=== PATIENT | male | born 1975 | race Caucasian/White ===

== ENCOUNTER 2019-09-13 11:00 | Day surgery (SDC) | payer MEDICAID ==
[~2019-09-13] VITALS: Ht 180.3 cm; Wt 106.3 kg
[~2019-09-13 11:00] MED LIST: SODIUM CHLORIDE 0.9% 1,000 ML ONE
[2019-09-13] MEDS ORDERED: SODIUM CHLORIDE 0.9% 1,000 ML IV ONE (13:00)
[2019-09-13] MEDS ORDERED: LIDOCAINE 1% 10 ML VIAL ONE (21:49)
[2019-09-13] MEDS ORDERED: PROPOFOL 1% 20 ML VIAL IVP ONE (21:49)
== END 2019-09-13 18:05 | disposition home or self-care (01) ==
LOC: SURGERY 11:00
PROVIDERS: ATTEND Internal Medicine Gastroenterology
DX: R10.13 Epigastric pain (principal); K29.50 Unspecified chronic gastritis without bleeding; K25.9 Gastric ulcer, unspecified as acute or chronic, without hemorrhage or perforation; K44.9 Diaphragmatic hernia without obstruction or gangrene; K22.10 Ulcer of esophagus without bleeding
CPT/HCPCS: 43239; 88305; 88312; 88313; C1769; J2704; J3490; J7030

== ENCOUNTER 2020-01-25 01:01 | Emergency (ER) | payer MEDICAID, OTHER ==
[~2020-01-25] VITALS: Ht 180.3 cm; Wt 90.9 kg
[2020-01-25 01:23] LABS: GLUCOSE,POINT OF CARE 100 MG/DL (70-110)
[2020-01-25 03:36] VITALS: BP 138/91
== END 2020-01-25 03:55 | disposition home or self-care (01) ==
LOC: EMS 01:02
DX: M25.562 Pain in left knee (principal); M25.561 Pain in right knee; E11.9 Type 2 diabetes mellitus without complications; I10 Essential (primary) hypertension; W19.XXXA Unspecified fall, initial encounter; Y93.89 Activity, other specified; Y92.89 Other specified places as the place of occurrence of the external cause; Y99.8 Other external cause status
CPT/HCPCS: 93005

== ENCOUNTER 2020-02-03 04:30 | Inpatient (IN) | payer MEDICAID ==
[2020-02-03] MEDS ORDERED: HALOPERIDOL 5 MG TABLET PO PRN (05:30)
[2020-02-03] MEDS ORDERED: ZOLPIDEM TARTRATE 10 MG TABLET PO PRN (05:30)
[2020-02-03 05:52] VITALS: BP 124/61
[2020-02-03] MEDS ORDERED: LOPERAMIDE HCL 2 MG CAPSULE PO PRN (07:00)
[2020-02-03] MEDS ORDERED: IBUPROFEN 600 MG TABLET PO PRN (07:00)
[2020-02-03] MEDS ORDERED: CloNIDine HCL 0.1 MG TABLET PO PRN (07:00)
[2020-02-03] MEDS ORDERED: BENZOCAINE/MENTHOL LOZENGE MM PRN (07:00)
[2020-02-03] MEDS ORDERED: DOCUSATE SODIUM 100 MG CAPSULE PO PRN (07:00)
[2020-02-03] MEDS ORDERED: BACITRACIN 28.4 GM OINTMENT TP PRN (07:00)
[2020-02-03] MEDS ORDERED: MAGNESIUM HYDROXIDE SUSPENSION 30 ML UDCUP PO PRN (07:00)
[2020-02-03] MEDS ORDERED: ONDANSETRON HCL 4 MG TABLET PO PRN (07:00)
[2020-02-03] MEDS ORDERED: ALBUTEROL SULFATE HFA 90 MCG/PUFF 8 GM INHALER IH PRN (07:00)
[2020-02-03] MEDS ORDERED: TraMADol HCL 50 MG TABLET PO PRN (07:00)
[2020-02-03] MEDS ORDERED: MAG HYDROX/AL HYDROX/SIMETH ES 30 ML SUSPENSION UDCUP PO PRN (07:00)
[2020-02-03] MEDS ORDERED: ACETAMINOPHEN 325 MG TABLET PO PRN (07:00)
[2020-02-03] MEDS ORDERED: PETROLATUM,WHITE 28 GM JELLY TP PRN (07:00)
[2020-02-03] MEDS ORDERED: OMEPRAZOLE 20 MG CAPSULE PO PRN (07:00)
[2020-02-03 08:07] VITALS: BP 107/56
[2020-02-03 16:36] VITALS: BP 135/79
[2020-02-03] MEDS: OLANZapine 10 MG TABLET PO SCH (20:39)
[2020-02-03] MEDS: LORazepam 2 MG TABLET PO PRN (20:39)
[2020-02-04 02:49] VITALS: BP 138/71
[2020-02-04 08:20] VITALS: BP 132/74
[2020-02-04 16:13] VITALS: BP 128/74
[2020-02-04] MEDS: LORazepam 2 MG TABLET PO PRN (20:53)
[2020-02-04] MEDS: OLANZapine 10 MG TABLET PO SCH (20:53)
[2020-02-05 06:17] VITALS: BP 127/78
[2020-02-05 08:12] VITALS: BP 132/87
[2020-02-05] MEDS: LORazepam 2 MG TABLET PO PRN (15:59)
[2020-02-05 17:20] VITALS: BP 136/76
[2020-02-05] MEDS: OLANZapine 10 MG TABLET PO SCH (20:06)
[2020-02-06 00:49] VITALS: BP 129/86
[2020-02-06 08:09] VITALS: BP 121/73
[2020-02-06] MEDS: LORazepam 2 MG TABLET PO PRN (15:33)
[2020-02-06 20:28] VITALS: BP 128/70
[2020-02-06] MEDS: OLANZapine 10 MG TABLET PO SCH (20:30)
[2020-02-07] VITALS (8 sets, daily range): BP systolic 106–132; BP diastolic 60–76
[2020-02-07] MEDS: OLANZapine 10 MG TABLET PO SCH (20:10)
[2020-02-07] MEDS: LORazepam 2 MG TABLET PO PRN (20:10)
[2020-02-08 00:49] VITALS: BP 122/73
[2020-02-08 06:53] LABS: HEMOGLOBIN 14.5 g/dL (13.5-17.5); MEAN CORPUSCULAR HEMOGLOBIN 30.2 pg (26.0-34.0); MEAN CORPUSCULAR HGB CONC 34.4 G/dL (31.0-37.0); MEAN CORPUSCULAR VOLUME 88 fL (80-100); PLATELET COUNT (AUTO) 281 K/uL (150-450); RED CELL DISTRIBUTION WIDTH 14.5 % (11.5-14.5)
[2020-02-08 07:47] LABS: ANION GAP 8 mmol/L (8-16); CALCIUM, TOTAL 8.5 mg/dL (8.8-10.5); CARBON DIOXIDE 29 mmol/L (22-29); CHLORIDE 103 mmol/L (98-107); CHOL/HDL RATIO 4.6 (4.2-7.3); CHOLESTEROL 192 mg/dL (131-200); CREATININE 0.91 mg/dL (0.60-1.30); GLOMERULAR FILTR. RATE CALC > 60 mL/min (>60); GLUCOSE,RANDOM 87 mg/dL (70-110); HDL CHOLESTEROL 42 mg/dL (40-60); LDL CHOL (CALC.) 123 mg/dL (0-130); PHOSPHORUS 4.2 mg/dL (2.5-4.9); POTASSIUM 4.3 mmol/L (3.5-5.1); SODIUM SERUM 140 mmol/L (136-145); TRIGLYCERIDES 133 mg/dL (15-150); UREA NITROGEN, BLOOD 12 mg/dL (7-18)
[2020-02-08 08:08] LABS: THYROID STIMULATING HORMONE < 0.01 uIU/mL (0.36-3.74)
[2020-02-08 08:13] VITALS: BP 117/72
[2020-02-08 12:57] LABS: BAND NEUTROPHILS % (MANUAL) 2 % (0-5); EOSINOPHILS % (MANUAL) 1 % (1-6); LYMPHOCYTES % (MANUAL) 41 % (22-44); MONOCYTES % (MANUAL) 10 % (2-9); SEGMENTED NEUTROPHILS % 46 % (40-70)
[2020-02-08 16:12] VITALS: BP 115/65
[2020-02-08] MEDS: OLANZapine 10 MG TABLET PO SCH (20:09)
[2020-02-08] MEDS: LORazepam 2 MG TABLET PO PRN (20:09)
[2020-02-09 04:16] VITALS: BP 147/83
[2020-02-09 08:27] VITALS: BP 117/61
[2020-02-09] MEDS: MUPIROCIN CALCIUM 2% 22 GM OINTMENT NASAL SCH ×2 (12:25→16:05)
[2020-02-09 16:12] VITALS: BP 123/70
[2020-02-09] MEDS: OLANZapine 10 MG TABLET PO SCH (21:10)
[2020-02-10 05:39] VITALS: BP 120/71
[2020-02-10 08:24] VITALS: BP 108/68
[2020-02-10] MEDS: MUPIROCIN CALCIUM 2% 22 GM OINTMENT NASAL SCH ×2 (08:34→16:30)
[2020-02-10 16:24] VITALS: BP 112/74
[2020-02-10] MEDS ORDERED: LORazepam 2 MG/ML VIAL ONE (16:42)
[2020-02-10] MEDS ORDERED: OLAN10TA3 PO (17:12)
== END 2020-02-10 17:30 | disposition home or self-care (01) | DRG 750 ==
LOC: B3A 04:30
PROVIDERS: ADMIT Psychiatry & Neurology Psychiatry; ATTEND Psychiatry & Neurology Psychiatry
DX: F20.0 Paranoid schizophrenia (principal); F12.10 Cannabis abuse, uncomplicated; F15.10 Other stimulant abuse, uncomplicated; K59.00 Constipation, unspecified; F41.9 Anxiety disorder, unspecified; F64.9 Gender identity disorder, unspecified
CPT/HCPCS: 83735; 84100; 84443; 85007; 87081; J2060

== ENCOUNTER 2024-08-05 15:22 | Emergency (ER) | payer OTHER ==
[~2024-08-05] VITALS: Ht 177.8 cm; Wt 79.5 kg
[~2024-08-05 15:22] MED LIST changes: +ACET-66 PO; +IBUP-1554 PO; +OLAN10TA74 PO; -SODIUM CHLORIDE 0.9% 1,000 ML ONE
[2024-08-05 15:26] VITALS: BP 160/99; PULSE 98; RESP 18; TEMP 98.4; O2SAT 99
== END 2024-08-05 16:38 | disposition home or self-care (01) ==
LOC: EMS 15:22
DX: K04.7 Periapical abscess without sinus (principal); I10 Essential (primary) hypertension
CPT/HCPCS: 99282; Z7502